=== PATIENT | female | born 1995 ===

== ENCOUNTER 2022-01-24 09:49 | Emergency (ER) | payer MEDICAID, OTHER ==
[~2022-01-24] VITALS: Ht 162.6 cm; Wt 63.5 kg
[2022-01-24 10:17] VITALS: BP 131/70
[2022-01-24] MEDS ORDERED: IBUPROFEN 800 MG TAB PO ONE (10:30)
[2022-01-24] MEDS ORDERED: IBUP800T27 PO (11:26)
== END 2022-01-24 11:29 | disposition home or self-care (01) ==
LOC: ER 09:49
DX: G89.29 Other chronic pain (principal); M25.552 Pain in left hip
CPT/HCPCS: 73502